=== PATIENT | female | born 1970 | race Caucasian/White ===

== ENCOUNTER 2021-01-27 14:37 | Emergency (ER) | payer BC ==
[2021-01-27 15:03] VITALS: RESP 18; TEMP 98.5
[2021-01-27] MEDS: KETOROLAC 15 MG/ML 1 ML VIAL IM STA (15:31)
[2021-01-27 15:42] LABS: Basophils % (A) 0 %; Eosinophils # (A) 0.2 k/uL (0-0.7); Eosinophils % (A) 2 %; HCT 39.1 % (34.0-46.0); HGB 12.9 gm/dL (11.4-16.0); Lymphocytes # (A) 1.1 k/uL (1.0-4.8); Lymphocytes % (A) 17 %; MCH 32.4 pg (25.0-35.0); MCHC 32.9 g/dL (31.0-37.0); MCV 98.5 fL (80.0-100.0); Mean Platelet Volume 7.4; Monocytes # (A) 0.3 k/uL (0-1.0); Monocytes % (A) 4 %; Neutrophils % (A) 75 %; Platelet Count 314 k/uL (150-450); RBC 3.97 m/uL (3.80-5.40); RDW 13.4 % (11.5-15.5); WBC 6.7 k/uL (3.8-10.6)
[2021-01-27 15:54] LABS: ALT 12 U/L (4-34); AST 26 U/L (14-36); African American GFR (CKD) >90 (>60 ml/min/1.73 sqM); Albumin 4.4 g/dL (3.5-5.0); Alkaline Phosphatase 75 U/L (38-126); Anion Gap 7 mmol/L; Blood Urea Nitrogen 16 mg/dL (7-17); Calcium 9.8 mg/dL (8.4-10.2); Carbon Dioxide 25 mmol/L (22-30); Chloride 105 mmol/L (98-107); Glucose 98 mg/dL (74-99); Non-African American GFR(CKD) 84 (>60 ml/min/1.73 sqM); Potassium 4.7 mmol/L (3.5-5.1); Sodium 137 mmol/L (137-145); Total Bilirubin 0.2 mg/dL (0.2-1.3); Total Protein 6.9 g/dL (6.3-8.2)
--- NOTE | 2021-01-27 16:05 | XR ---
EXAMINATION TYPE: XR foot complete LT DATE OF EXAM: 01/27/2021 COMPARISON: NONE HISTORY: Foot pain TECHNIQUE: 3 views FINDINGS: Metatarsals are intact. I see no fracture nor dislocation. Joint spaces are normal. There a re no erosions. IMPRESSION: Negative left foot exam.
--- NOTE | 2021-01-27 17:01 | ED ---
General Adult HPI - General Chief complaint: Extremity Problem,Nontraumatic Stated complaint: L foot pain Time Seen by Provider: 01/27/21 15:05 Source: patient, RN notes reviewed Mode of arrival: ambulatory Limitations: no limitations - History of Present Illness Initial comments: Patient is a 50-year-old female that presents to emergency department com plaining of left great toe pain. She notes that she does have a chronic bony noted that foot but feels like it is been flaring up with pain for the past 3 days. She notes that she did take her ex- culture 71 time last night with no relief. She notes she came in to get evaluated for possible issues. She denied any other issues or complaints at this time. She is a well-appearing 50-year-old female. She notes that her pain was approximately a 6-7 out of 10. She denied any chest pain shortness of breath headache nausea vomiting diarrhea constipation fever fatigue chills. - Related Data Previous Rx's Medication Instructions Recorded Indomethacin [Indocin] 50 mg PO TID #30 capsule 01/27/21 Allergies Allergy/AdvReac Type Severity Reaction Status Date / Time nitrofurantoin Allergy Itching Verified 01/27/21 15:00 [From Macrobid] Sulfa (Sulfonamide Allergy Rash/Hives Verified 01/27/21 15:00 Antibiotics) Review of Systems ROS Statement: Those systems with pertinent positive or pertinent negative responses have been documented in the HPI. ROS Other: All systems not noted in ROS Statement are negative. Past Medical History Past Medical History: No Reported History History of Any Multi-Drug Resistant Organisms: None Reported Past Surgical History: Breast Surgery, Section Past Psychological History: No Psychological Hx Reported Smoking Status: Never smoker Past Alcohol Use History: Occasional Past Drug Use History: None Reported General Exam Limitations: no limitations General appearance: alert, in no apparent distress Head exam: Present: atraumatic, normocephalic, normal inspection Eye exam: Present: normal appearance, PERRL, EOMI. Absent: scleral icterus, conjunctival injection, periorbital swelling Neck exam: Present: normal inspection Respiratory exam: Present: normal lung sounds bilaterally. Absent: respiratory distress, wheezes, rales, rhonchi, stridor Cardiovascular Exam: Present: regular rate, normal rhythm, normal heart sounds. Absent: systolic murmur, diastolic murmur, rubs, gallop, clicks GI/Abdominal exam: Present: soft, normal bowel sounds. Absent: distended, tenderness, guarding, rebound, rigid Left Foot/Toe exam: Present: normal inspection, full ROM, tenderness (Medial aspect of great toe). Absent: swelling, abrasion, laceration Neurological exam: Present: alert, oriented X3 Psychiatric exam: Present: normal affect, normal mood Skin exam: Present: warm, dry, intact, normal color. Absent: rash Course Vital Signs 01/27/21 15:00 Temperature 98.5 F Pulse Rate 84 Respiratory 18 Rate Blood Pressure 129/79 O2 Sat by Pulse 99 Oximetry Medical Decision Making - Medical Decision Making 50-year-old female complaining of left great toe pain. X-ray left great toe, 15 mg of Toradol, basic labs ordered. Labs unremarkable. X-ray negative for any acute osseous abnormality. Case discussed with Dr. Nguyen, patient can discharge home with follow-up primary care and medical massage therapist as needed. - Lab Data Result diagrams: 01/27/21 15:35 01/27/21 15:35 Lab Results 01/27/21 01/27/21 Range/Units 15:35 15:35 WBC 6.7 (3.8-10.6) k/uL RBC 3.97 (3.80-5.40) m/uL Hgb 12.9 (11.4-16.0) gm/dL Hct 39.1 (34.0-46.0) % MCV 98.5 (80.0-100.0) fL MCH 32.4 (25.0-35.0) pg MCHC 32.9 (31.0-37.0) g/dL RDW 13.4 (11.5-15.5) % Plt Count 314 (150-450) k/uL MPV 7.4 Neutrophils % 75 % Lymphocytes % 17 % Monocytes % 4 % Eosinophils % 2 % Basophils % 0 % Neutrophils # 5.0 (1.3-7.7) k/uL Lymphocytes # 1.1 (1.0-4.8) k/uL Monocytes # 0.3 (0-1.0) k/uL Eosinophils # 0.2 (0-0.7) k/uL Basophils # 0.0 (0-0.2) k/uL Sodium 137 (137-145) mmol/L Potassium 4.7 (3.5-5.1) mmol/L Chloride 105 (98-107) mmol/L Carbon Dioxide 25 (22-30) mmol/L Anion Gap 7 mmol/L BUN 16 (7-17) mg/dL Creatinine 0.83 (0.52-1.04) mg/dL Est GFR (CKD-EPI)AfAm >90 (>60 ml/min/1.73 sqM) Est GFR (CKD-EPI)NonAf 84 (>60 ml/min/1.73 sqM) Glucose 98 (74-99) mg/dL Calcium 9.8 (8.4-10.2) mg/dL Total Bilirubin 0.2 (0.2-1.3) mg/dL AST 26 (14-36) U/L ALT 12 (4-34) U/L Alkaline Phosphatase 75 (38-126) U/L Total Protein 6.9 (6.3-8.2) g/dL Albumin 4.4 (3.5-5.0) g/dL - Radiology Data Radiology results: report reviewed, image reviewed X-ray left foot: Negative left foot exam. Disposition Clinical Impression: Pain of left great toe Disposition: HOME SELF-CARE Condition: Stable Instructions (If sedation given, give patient instructions): Metatarsalgia (DC) Additional Instructions: Please return to the Emergency Department if symptoms worsen or any other concerns. Follow-up with primary care in 1-2 days. Follow-up with podiatry as needed. Take indomethacin as prescribed. Is patient prescribed a controlled substance at d/c from ED?: No Referrals: Jessica Lopez MD [Primary Care Provider] - 1-2 days Time of Disposition: 17:01
[2021-01-27 17:32] VITALS: BP 153/76; PULSE 71
== END 2021-01-27 17:30 | disposition home or self-care (01) ==
LOC: EC 14:37
DX: M79.675 Pain in left toe(s) (principal)
CPT/HCPCS: 36415; 80053; 84560; 85025; 96372; 99283